=== PATIENT | male | born 1985 | race Caucasian/White ===

== ENCOUNTER 2020-12-20 21:52 | Emergency (ER) | payer BC, OTHER ==
[~2020-12-20] VITALS: Ht 182.9 cm; Wt 63.0 kg
[2020-12-20 22:06] VITALS: BP 106/74
[2020-12-20] MEDS ORDERED: DEXAMETHASONE 4 MG TABLET PO ONE (23:00)
--- NOTE | 2020-12-20 23:08 | NUR ---
PT MOVED TO ROOM
[2020-12-20] MEDS ORDERED: DEXAMETHASONE 4 MG TABLET ONE (23:15)
[2020-12-20] MEDS ORDERED: PLEASE ENTER ALLERGIES MC SCH (23:30)
[2020-12-20] MEDS ORDERED: ONDANSETRON ODT 4 MG PO ONE (23:30)
[2020-12-20] MEDS ORDERED: ACETAMINOPHEN 500 MG TABLET PO ONE (23:30)
[2020-12-20] MEDS ORDERED: ACETAMINOPHEN 500 MG TABLET ONE (23:48)
[2020-12-20] MEDS ORDERED: ONDANSETRON ODT 4 MG ONE (23:48)
== END 2020-12-20 23:58 | disposition home or self-care (01) ==
LOC: ED 22:00
DX: B34.9 Viral infection, unspecified (principal); R11.0 Nausea
CPT/HCPCS: 99283; Q0162